=== PATIENT | female | born 1990 | race Caucasian/White ===

== ENCOUNTER → 2017-07-03 | Outpatient (CLI) | payer SELFPAY ==
[~2017-07-03] MED LIST: FAMC250 PO; FLUO20 PO; HYDACE5 PO; Silvadene20 GM TOP; [UNRECOGNIZED DRUG - REMARK]
== END | disposition home or self-care (01) ==
LOC: PLD 10:46
DX: R87.810 Cervical high risk human papillomavirus (HPV) DNA test positive (principal); R87.619 Unspecified abnormal cytological findings in specimens from cervix uteri
CPT/HCPCS: 88305

== ENCOUNTER → 2017-07-24 | Outpatient (CLI) | payer SELFPAY | LOC: PLD 11:30 | DX: D06.9 Carcinoma in situ of cervix, unspecified (principal); R87.810 Cervical high risk human papillomavirus (HPV) DNA test positive; R87.619 Unspecified abnormal cytological findings in specimens from cervix uteri | CPT/HCPCS: 88305 ==

== ENCOUNTER → 2017-12-02 | Outpatient (CLI) | payer SELFPAY | END | disposition home or self-care (01) | LOC: OLS 15:12 → LAB SHORT 15:12 | PROVIDERS: Nurse Practitioner Women's Health | DX: D06.9 Carcinoma in situ of cervix, unspecified (principal); R87.810 Cervical high risk human papillomavirus (HPV) DNA test positive | CPT/HCPCS: 87624; 88142 ==

== ENCOUNTER → 2018-04-06 | Outpatient (CLI) | payer SELFPAY ==
[2018-04-08 16:08] LABS: HPV 16 Positive (Negative); HPV 18 Negative (Negative); HPV OTHER HR TYPES Negative (Negative)
== END | disposition home or self-care (01) ==
LOC: LAB SHORT 17:48 → LAB 17:48
PROVIDERS: Obstetrics & Gynecology Gynecology
DX: Z12.4 Encounter for screening for malignant neoplasm of cervix (principal); L29.3 Anogenital pruritus, unspecified
CPT/HCPCS: 87070; 87205; 87624; G0123

== ENCOUNTER → 2018-07-13 | Outpatient (CLI) | payer SELFPAY ==
[2018-07-15 16:09] LABS: HPV 16 Positive (Negative); HPV 18 Negative (Negative); HPV OTHER HR TYPES Negative (Negative)
== END ==
LOC: LAB SHORT 20:01 → LAB 20:01
PROVIDERS: Obstetrics & Gynecology Gynecology
DX: D06.9 Carcinoma in situ of cervix, unspecified (principal); R87.810 Cervical high risk human papillomavirus (HPV) DNA test positive
CPT/HCPCS: 87624; 87625; 88142

== ENCOUNTER → 2019-01-21 | Outpatient (CLI) | payer OTHER ==
[2019-01-24 15:06] LABS: HPV 16 Negative (Negative); HPV 18 Negative (Negative); HPV OTHER HR TYPES Negative (Negative)
== END | disposition home or self-care (01) ==
LOC: LAB 11:17 → LAB SHORT 11:17
PROVIDERS: Obstetrics & Gynecology Gynecology
DX: D06.9 Carcinoma in situ of cervix, unspecified (principal); R87.810 Cervical high risk human papillomavirus (HPV) DNA test positive
CPT/HCPCS: 87624; 88142

== ENCOUNTER → 2019-06-24 | Outpatient (CLI) | payer SELFPAY ==
[2019-06-28 16:06] LABS: HPV 16 Negative (Negative); HPV 18 Negative (Negative); HPV OTHER HR TYPES Negative (Negative)
== END | disposition home or self-care (01) ==
LOC: LAB SHORT 13:35 → LAB 13:35
PROVIDERS: Obstetrics & Gynecology Gynecology
DX: Z12.4 Encounter for screening for malignant neoplasm of cervix (principal)
CPT/HCPCS: 87624; G0123

== ENCOUNTER → 2022-12-16 | Outpatient (CLI) | payer BC | END | disposition home or self-care (01) | LOC: LAB SHORT 09:55 → PLD 09:55 | DX: Z33.1 Pregnant state, incidental (principal) | CPT/HCPCS: 84702 ==